=== PATIENT | male | born 1940 | race Caucasian/White ===

== ENCOUNTER 2017-10-05 16:54 | Emergency (ER) | payer MEDICARE | END 2017-10-05 20:00 | disposition home or self-care (01) | LOC: D.ER 16:54 | DX: S70.02XA Contusion of left hip, initial encounter (principal); W06.XXXA Fall from bed, initial encounter; Y93.89 Activity, other specified; Y92.122 Bedroom in nursing home as the place of occurrence of the external cause; G30.9 Alzheimer's disease, unspecified; F02.80 Dementia in other diseases classified elsewhere, unspecified severity, without behavioral disturbance, psychotic disturbance, mood disturbance, and anxiety ==